=== PATIENT | female | born 2005 | race African-American/Black ===

== ENCOUNTER 2024-01-03 22:17 | Emergency (ER) | payer SELFPAY ==
[~2024-01-03] VITALS: Ht 157.5 cm; Wt 52.8 kg
[2024-01-04 01:36] LABS: Trichomonas vaginalis (AMP) NOT DETECTED (NEGATIVE)
[2024-01-04 01:42] VITALS: BP 110/76; TEMP 98; O2SAT 98
[2024-01-04 02:00] LABS: GC DNA AMPLIFICATION NEGATIVE (NEGATIVE)
== END 2024-01-04 01:44 | disposition home or self-care (01) ==
LOC: M ED 22:17
DX: Z03.89 Encounter for observation for other suspected diseases and conditions ruled out (principal)